=== PATIENT | female | born 1970 | race African-American/Black ===

== ENCOUNTER 2022-07-11 13:57 | Outpatient (CLI) | payer BC | END 2022-07-11 13:58 | disposition home or self-care (01) | LOC: BICRAD 13:57 | PROVIDERS: ATTEND Nurse Practitioner Family | DX: S89.92XA Unspecified injury of left lower leg, initial encounter (principal) ==

== ENCOUNTER 2025-02-25 08:15 | Outpatient (CLI) | payer BC | END 2025-02-25 08:16 | disposition home or self-care (01) | LOC: BICMRI 08:15 | PROVIDERS: ATTEND Family Medicine Sports Medicine | DX: M75.111 Incomplete rotator cuff tear or rupture of right shoulder, not specified as traumatic (principal); S46.811A Strain of other muscles, fascia and tendons at shoulder and upper arm level, right arm, initial encounter; S43.401A Unspecified sprain of right shoulder joint, initial encounter ==